=== PATIENT | male | born 1985 | race African-American/Black ===

== ENCOUNTER 2017-09-03 15:23 | Emergency (ER) | payer OTHER ==
--- NOTE | 2017-09-03 16:14 | ED ---
General Adult HPI - General Chief complaint: Chest Pain Stated complaint: High BP/Chest Pain Time Seen by Provider: 09/03/17 15:30 Source: patient, RN notes reviewed Mode of arrival: ambulatory Limitations: no limitations - History of Present Illness Initial comments: This a 32-year-old male presents emergency Department complaining of epigastric abdominal pain. Patient states he has been diagnosed with hypertension past was post get medications however does not take them. Patient went to a pharmacy and got a very high blood pressure so immediately came here after he had experienced about 10 seconds worth of epigastric abdominal pain. Patient became concerned because his pressure was high there however here it was completely normal. Patient denies any radiation of the pain. Patient denies shortness of breath difficulty breathing. Patient denies any diaphoresis. Patient denies any symptoms at this time. Patient denies any history of diabetes or high cholesterol. Patient denies any smoking history. Patient states family history is negative for heart disease. Patient states he's had these symptoms before and that she was in the epigastric region and occasionally feels a little radiation into his chest but it never lasts for more than 10 seconds. Patient states it does feel like a cramp. - Related Data Home Medications Medication Instructions Recorded Confirmed No Known Home Medications [No 09/03/17 09/03/17 Known Home Medications] Allergies Allergy/AdvReac Type Severity Reaction Status Date / Time No Known Allergies Allergy Verified 09/03/17 16:01 Review of Systems ROS Statement: Those systems with pertinent positive or pertinent negative responses have been documented in the HPI. ROS Other: All systems not noted in ROS Statement are negative. Past Medical History Past Medical History: No Reported History History of Any Multi-Drug Resistant Organisms: None Reported Past Surgical History: Orthopedic Surgery Past Psychological History: No Psychological Hx Reported Smoking Status: Never smoker Past Alcohol Use History: None Reported Past Drug Use History: None Reported General Exam - General Exam Comments Initial Comments: GENERAL: Patient is well-developed and well-nourished. Patient is nontoxic and well- hydrated and is in no acute distress. ENT: Neck is soft and supple. No significant lymphadenopathy is noted. Oropharynx is clear. Moist mucous membranes. Neck has full range of motion without eliciting any pain. There is no thyroid enlargement and no masses were felt. EYES: The sclera were anicteric and conjunctiva were pink and moist. Extraocular movements were intact and pupils were equal round and reactive to light. Eyelids were unremarkable. PULMONARY: Unlabored respirations. Good breath sounds bilaterally. No audible rales rhonchi or wheezing was noted. CARDIOVASCULAR: There is a regular rate and rhythm without any murmurs gallops or rubs. ABDOMEN: Soft and nontender with normal bowel sounds. No palpable organomegaly was noted. There is no palpable pulsatile mass. SKIN: Skin is clear with no lesions or rashes and otherwise unremarkable. NEUROLOGIC: Patient is alert and oriented x3. Cranial nerves II through XII are grossly intact. Motor and sensory are also intact. Normal speech, volume and content. Symmetrical smile. MUSCULOSKELETAL: Normal extremities with adequate strength and full range of motion. LYMPHATICS: No significant lymphadenopathy is noted PSYCHIATRIC: Normal psychiatric evaluation. Limitations: no limitations Course Vital Signs 09/03/17 09/03/17 15:33 17:10 Temperature 97.8 F Pulse Rate 83 84 Respiratory 18 16 Rate Blood Pressure 132/73 136/80 O2 Sat by Pulse 98 99 Oximetry Medical Decision Making - Medical Decision Making EKG shows normal sinus rhythm at 70 bpm IN interval is 152 QRS is 82 QT interval 376 QTC is 428. EKG shows some slight ST segment elevation especially in leads V1 and V2 and V3. I I had Dr. Duggan review this EKG and he was not concerned stated that he would not worry about this because it was in most of the leads. Chest x-ray shows no acute abnormalities. Patient remained chest pain free throughout the ED course. - Lab Data Result diagrams: 09/03/17 16:31 09/03/17 16:31 Lab Results 09/03/17 09/03/17 09/03/17 Range/Units 16:31 16:31 16:31 WBC 4.3 (3.8-10.6) k/uL RBC 5.02 (4.30-5.90) m/uL Hgb 14.9 (13.0-17.5) gm/dL Hct 44.3 (39.0-53.0) % MCV 88.3 (80.0-100.0) fL MCH 29.8 (25.0-35.0) pg MCHC 33.7 (31.0-37.0) g/dL RDW 12.2 (11.5-15.5) % Plt Count 283 (150-450) k/uL Neutrophils % 48 % Lymphocytes % 38 % Monocytes % 6 % Eosinophils % 7 % Basophils % 1 % Neutrophils # 2.1 (1.3-7.7) k/uL Lymphocytes # 1.6 (1.0-4.8) k/uL Monocytes # 0.3 (0-1.0) k/uL Eosinophils # 0.3 (0-0.7) k/uL Basophils # 0.0 (0-0.2) k/uL PT (9.0-12.0) sec INR (<1.2) APTT (22.0-30.0) sec Sodium 141 (137-145) mmol/L Potassium 4.2 (3.5-5.1) mmol/L Chloride 105 (98-107) mmol/L Carbon Dioxide 25 (22-30) mmol/L Anion Gap 11 mmol/L BUN 12 (9-20) mg/dL Creatinine 0.90 (0.66-1.25) mg/dL Est GFR (CKD-EPI)AfAm >90 (>60 ml/min/1.73 sqM) Est GFR (CKD-EPI)NonAf >90 (>60 ml/min/1.73 sqM) Glucose 99 (74-99) mg/dL Calcium 9.5 (8.4-10.2) mg/dL Magnesium 2.3 (1.6-2.3) mg/dL Total Bilirubin 0.6 (0.2-1.3) mg/dL AST 25 (17-59) U/L ALT 38 (21-72) U/L Alkaline Phosphatase 94 (38-126) U/L Total Creatine Kinase 444 H (55-170) U/L CK-MB (CK-2) 1.8 (0.0-2.4) ng/mL CK-MB (CK-2) Rel Index 0.4 Troponin I <0.012 (0.000-0.034) ng/mL Total Protein 7.3 (6.3-8.2) g/dL Albumin 4.3 (3.5-5.0) g/dL Amylase 68 (30-110) U/L Lipase 104 (23-300) U/L 09/03/17 Range/Units 16:31 WBC (3.8-10.6) k/uL RBC (4.30-5.90) m/uL Hgb (13.0-17.5) gm/dL Hct (39.0-53.0) % MCV (80.0-100.0) fL MCH (25.0-35.0) pg MCHC (31.0-37.0) g/dL RDW (11.5-15.5) % Plt Count (150-450) k/uL Neutrophils % % Lymphocytes % % Monocytes % % Eosinophils % % Basophils % % Neutrophils # (1.3-7.7) k/uL Lymphocytes # (1.0-4.8) k/uL Monocytes # (0-1.0) k/uL Eosinophils # (0-0.7) k/uL Basophils # (0-0.2) k/uL PT 10.6 (9.0-12.0) sec INR 1.1 (<1.2) APTT 26.3 (22.0-30.0) sec Sodium (137-145) mmol/L Potassium (3.5-5.1) mmol/L Chloride (98-107) mmol/L Carbon Dioxide (22-30) mmol/L Anion Gap mmol/L BUN (9-20) mg/dL Creatinine (0.66-1.25) mg/dL Est GFR (CKD-EPI)AfAm (>60 ml/min/1.73 sqM) Est GFR (CKD-EPI)NonAf (>60 ml/min/1.73 sqM) Glucose (74-99) mg/dL Calcium (8.4-10.2) mg/dL Magnesium (1.6-2.3) mg/dL Total Bilirubin (0.2-1.3) mg/dL AST (17-59) U/L ALT (21-72) U/L Alkaline Phosphatase (38-126) U/L Total Creatine Kinase (55-170) U/L CK-MB (CK-2) (0.0-2.4) ng/mL CK-MB (CK-2) Rel Index Troponin I (0.000-0.034) ng/mL Total Protein (6.3-8.2) g/dL Albumin (3.5-5.0) g/dL Amylase (30-110) U/L Lipase (23-300) U/L Disposition Clinical Impression: Atypical chest pain Disposition: HOME SELF-CARE Condition: Good Instructions: Chest Pain (ED) Referrals: Fabian Britton MD [Primary Care Provider] - 1-2 days Time of Disposition: 17:27
[2017-09-03 16:42] LABS: Basophils % (A) 1 %; Eosinophils # (A) 0.3 k/uL (0-0.7); Eosinophils % (A) 7 %; HCT 44.3 % (39.0-53.0); HGB 14.9 gm/dL (13.0-17.5); Lymphocytes # (A) 1.6 k/uL (1.0-4.8); Lymphocytes % (A) 38 %; MCH 29.8 pg (25.0-35.0); MCHC 33.7 g/dL (31.0-37.0); MCV 88.3 fL (80.0-100.0); Mean Platelet Volume 7.3; Monocytes # (A) 0.3 k/uL (0-1.0); Monocytes % (A) 6 %; Neutrophils # (A) 2.1 k/uL (1.3-7.7); Neutrophils % (A) 48 %; Platelet Count 283 k/uL (150-450); RBC 5.02 m/uL (4.30-5.90); RDW 12.2 % (11.5-15.5); WBC 4.3 k/uL (3.8-10.6)
--- NOTE | 2017-09-03 16:46 | XR ---
EXAMINATION TYPE: XR chest 2V DATE OF EXAM: 09/03/2017 COMPARISON: NONE HISTORY: Chest pain and hypertension TECHNIQUE: Frontal and lateral views of the chest are obtained. FINDINGS: There is no focal air space opacity, pleural effusion, or pneumothorax seen. Left basilar subsegmental atelectasis is noted. The cardiac silhouette size is within normal limits. The osseou s structures are intact. There is minimal left hemidiaphragm elevation. IMPRESSION: Left basilar subsegmental atelectasis with no other acute cardiopulmonary process.
[2017-09-03 16:52] LABS: ALT 38 U/L (21-72); AST 25 U/L (17-59); Albumin 4.3 g/dL (3.5-5.0); Alkaline Phosphatase 94 U/L (38-126); Amylase 68 U/L (30-110); Anion Gap 11 mmol/L; Blood Urea Nitrogen 12 mg/dL (9-20); Calcium 9.5 mg/dL (8.4-10.2); Carbon Dioxide 25 mmol/L (22-30); Chloride 105 mmol/L (98-107); Glucose 99 mg/dL (74-99); Lipase 104 U/L (23-300); Magnesium 2.3 mg/dL (1.6-2.3); Potassium 4.2 mmol/L (3.5-5.1); Sodium 141 mmol/L (137-145); Total Bilirubin 0.6 mg/dL (0.2-1.3); Total Protein 7.3 g/dL (6.3-8.2)
[2017-09-03 16:53] LABS: INR 1.1 (<1.2); Partial Thromboplastin Time 26.3 sec (22.0-30.0); Prothrombin Time 10.6 sec (9.0-12.0)
[2017-09-03 16:54] LABS: Creatine Kinase 444 U/L (55-170)
[2017-09-03 17:07] LABS: Creatine Kinase MB 1.8 ng/mL (0.0-2.4); Troponin I <0.012 ng/mL (0.000-0.034)
[2017-09-03 18:08] VITALS: BP 126/82; PULSE 80; RESP 18; TEMP 97.6
== END 2017-09-03 18:08 | disposition home or self-care (01) ==
LOC: EC 15:23
DX: R07.89 Other chest pain (principal); R10.13 Epigastric pain
CPT/HCPCS: 36415; 71046; 80053; 82150; 82550; 82553; 83690; 83735; 84484; 85025; 85610; 85730; 93005; 99285

== ENCOUNTER 2019-02-24 12:19 | Emergency (ER) | payer OTHER ==
[2019-02-24 12:25] VITALS: BP 151/103; PULSE 94; RESP 18; TEMP 98
[2019-02-24] MEDS ORDERED: predniSONE 50 MG TAB PO STA (12:41)
[2019-02-24] MEDS ORDERED: KETOROLAC 30 MG/ML 1 ML VIAL IM STA (12:41)
--- NOTE | 2019-02-24 13:03 | ED ---
General Adult HPI - General Chief complaint: Extremity Injury, Lower Stated complaint: L Arm&Leg Pain Time Seen by Provider: 02/24/19 12:28 Source: patient, RN notes reviewed Mode of arrival: ambulatory Limitations: no limitations - History of Present Illness Initial comments: 33-year-old male presents to the emergency department for chief of left leg p ain. Patient states that this has been ongoing for about 2 weeks. States that pain starts in the left side of his low back and radiates down his left leg to just above his knee. Patient states that sitting on this area makes the pain worse. Denies any injuries but does state this started after he was playing basketball. Denies any bladder or bowel changes. Denies any numbness or tingling in the saddle area. Denies any fevers or difficulty walking or weakness in the lower extremities. Denies any midline back pain. Patient has no other complaints at this time including shortness of breath, chest pain, abdominal pain, nausea or vomiting, headache, or visual changes. - Related Data Previous Rx's Medication Instructions Recorded predniSONE 50 mg PO DAILY #5 tablet 02/24/19 Allergies Allergy/AdvReac Type Severity Reaction Status Date / Time No Known Allergies Allergy Verified 09/03/17 16:01 Review of Systems ROS Statement: Those systems with pertinent positive or pertinent negative responses have been documented in the HPI. ROS Other: All systems not noted in ROS Statement are negative. Past Medical History Past Medical History: No Reported History History of Any Multi-Drug Resistant Organisms: None Reported Past Surgical History: Orthopedic Surgery Past Psychological History: No Psychological Hx Reported Smoking Status: Never smoker Past Alcohol Use History: None Reported Past Drug Use History: None Reported General Exam Limitations: no limitations General appearance: alert, in no apparent distress Head exam: Present: atraumatic, normocephalic, normal inspection Eye exam: Present: normal appearance, PERRL, EOMI. Absent: scleral icterus, conjunctival injection, periorbital swelling ENT exam: Present: normal exam, mucous membranes moist Neck exam: Present: normal inspection, full ROM. Absent: tenderness, meningismus, lymphadenopathy Respiratory exam: Present: normal lung sounds bilaterally. Absent: respiratory distress, wheezes, rales, rhonchi, stridor Cardiovascular Exam: Present: regular rate, normal rhythm, normal heart sounds. Absent: bradycardia, tachycardia, irregular rhythm Extremities exam: Present: other (Sensation intact in the left lower sternal knee. No edema or erythema. Patient has full range motion of the left hip and knee joints. DP pulses 2+, capillary refill less than 2 seconds. No tenderness of the calf or thigh. Patient does have tenderness in the sciatic notch. Positive straight leg raise test.) Back exam: Absent: CVA tenderness (R), CVA tenderness (L), paraspinal tenderness, vertebral tenderness Neurological exam: Present: alert Psychiatric exam: Present: normal affect, normal mood Course Vital Signs 02/24/19 12:23 Temperature 98.0 F Pulse Rate 94 Respiratory 18 Rate Blood Pressure 151/103 O2 Sat by Pulse 99 Oximetry Medical Decision Making - Medical Decision Making 33-year-old male presents to the emergency department for a chief complaint of left leg pain. States this has been ongoing for 2 weeks. States that it starts in his low back and radiates down the back of his left leg to just above his knee. States that sitting on this area makes it worse. Denies any injuries. No midline pain. On exam he does have sciatic notch tenderness and a positive straight leg raise. Neurovascular status intact in the left lower extremity. Sensation is intact in the left lower extremity and strength is 5 out of 5. Patient denies any red flag symptoms. Patient likely has sciatic nerve pain. Patient was given a shot of Toradol and this did improve his pain. he was educated on gentle stretching. He was given a prescription for steroids. He will follow up with primary care and orthopedics in one to 2 days. He'll return here if he has any worsening symptoms. Disposition Clinical Impression: Sciatic leg pain Disposition: HOME SELF-CARE Condition: Good Instructions (If sedation given, give patient instructions): Sciatica (ED), Lower Back Exercises (ED) Additional Instructions: Please take Motrin and Tylenol for pain. Take steroids starting tomorrow. Follow-up with orthopedics in one to 2 days. Return to the emergency department if you have any worsening symptoms. Prescriptions: predniSONE 50 mg PO DAILY #5 tablet Is patient prescribed a controlled substance at d/c from ED?: No Referrals: Fabian Britton MD [Primary Care Provider] - 1-2 days Porfirio Stevenson DO [Doctor of Osteopathic Medicine] - 1-2 days Time of Disposition: 13:38
== END 2019-02-24 13:44 | disposition home or self-care (01) ==
LOC: EC 12:19
DX: M54.42 Lumbago with sciatica, left side (principal); Z98.890 Other specified postprocedural states
CPT/HCPCS: 99283; 96372; J1885; J7512

== ENCOUNTER → 2019-05-28 | Outpatient (CLI) | payer OTHER ==
[2019-05-29 01:15] LABS: HIV 1 AB Non-Reactive (Non-Reactive); HIV 2 AB Non-Reactive (Non-Reactive); HIV AB P24 Non-Reactive (Non-Reactive); HIV P24 AG Non-Reactive (Non-Reactive)
[2019-05-29 02:06] LABS: Hepatitis A Antibody IgM Non-Reactive (Non-Reactive); Hepatitis B Core IgM Non-Reactive (Non-Reactive); Hepatitis B Surface Antigen Non-Reactive (Non-Reactive); Hepatitis C IgG Antibody Non-Reactive (Non-Reactive)
== END | disposition home or self-care (01) ==
LOC: LABMAIN 18:40
PROVIDERS: ATTEND Family Medicine
DX: Z11.3 Encounter for screening for infections with a predominantly sexual mode of transmission (principal); Z20.2 Contact with and (suspected) exposure to infections with a predominantly sexual mode of transmission; Z76.89 Persons encountering health services in other specified circumstances
CPT/HCPCS: 36415; 80074; 86694; 86695; 86696; 86780; 87390

== ENCOUNTER 2020-06-01 12:37 | Emergency (ER) | payer OTHER ==
[2020-06-01 12:49] VITALS: BP 136/86; PULSE 97; RESP 18; TEMP 99
--- NOTE | 2020-06-01 14:08 | ED ---
General Adult HPI - General Chief complaint: Nausea/Vomiting/Diarrhea Stated complaint: covid symptoms Time Seen by Provider: 06/01/20 13:26 Source: patient, RN notes reviewed, old records reviewed Mode of arrival: ambulatory Limitations: no limitations - History of Present Illness Initial comments: 35-year-old male patient to the ED for evaluation. Patient reports that he is coming to the hospital to get a Covid test. He reports that a couple days ago he had contact with a person who later tested Covid positive. He reports that he has had some minor myalgias and nausea. Denies any difficulty breathing or any fevers. Denies any other acute complaints. Systemic: Pt denies fatigue, fever/chills, rash. Pt denies weakness, night swe ats, weight loss. Neuro: Pt denies headache, visual disturbances, syncope or pre-syncope. HEENT: Pt denies ocular discharge or irritation, otalgia, rhinorrhea, pharyngitis or notable lymphadenopathy. Cardiopulmonary: Pt denies chest pain, SOB, heart palpitations, dyspnea on exertion. Abdominal/GI: Pt denies abdominal pain, v/d. : Pt denies dysuria, burning w/ urination, frequency/urgency. Denies new onset urinary or bowel incontinence. MSK: Pt denies loss of strength or function in extremities. Neuro: Pt denies new onset weakness, paresthesias. - Related Data Previous Rx's Medication Instructions Recorded predniSONE 50 mg PO DAILY #5 tablet 02/24/19 Allergies Allergy/AdvReac Type Severity Reaction Status Date / Time No Known Allergies Allergy Verified 06/01/20 12:49 Review of Systems ROS Statement: Those systems with pertinent positive or pertinent negative responses have been documented in the HPI. ROS Other: All systems not noted in ROS Statement are negative. Past Medical History Past Medical History: No Reported History History of Any Multi-Drug Resistant Organisms: None Reported Past Surgical History: Orthopedic Surgery Past Psychological History: No Psychological Hx Reported Smoking Status: Never smoker Past Alcohol Use History: Occasional Past Drug Use History: None Reported General Exam - General Exam Comments Initial Comments: Constitutional: NAD, AOX3, Pt has pleasant affect. HEENT: NC/AT, trachea midline, neck supple, no lymphadenopathy. External ears appear normal, without discharge. Mucous membranes moist. Eyes PERRLA, EOM intact. There is no scleral icterus. No pallor noted. Cardiopulmonary: RRR, no murmurs, rubs or gallops, no JVD noted. Lungs CTAB in anterior and posterior vidal. No peripheral edema. Abdominal exam: Abdomen soft and non-distended. Abdomen non-tender to palpation in all 4 quadrants. Bowel sounds active in LLQ. No hepatosplenomegaly. No ecchymosis Neuro: CN II-XII grossly intact. No nuchal rigidity. No raccon eyes, no santa sign, no hemotympanum. No cervical spinal tenderness. MSK: No posterior calf tenderness bilaterally, homans sign negative bilaterally. Posterior tibialis and radial pulse +2 bilaterally. Sensation intact in upper and lower extremities. Full active ROM in upper and lower extremities, 5/5 stregnth. Limitations: no limitations Course Vital Signs 06/01/20 12:47 Temperature 99.0 F Pulse Rate 97 Respiratory 18 Rate Blood Pressure 136/86 O2 Sat by Pulse 98 Oximetry Medical Decision Making - Medical Decision Making 35-year-old male patient to ED for Covid test. Patient also other stable, afebrile. Patient will be advised to self quarantined until results of tests. We'll try the any worsening symptoms. Case discussed with Dr. Raymond. Disposition Clinical Impression: Exposure to 2019 novel coronavirus Disposition: HOME SELF-CARE Condition: Stable Instructions (If sedation given, give patient instructions): Viral Syndrome (ED) Additional Instructions: Follow up with PCP tomorrow. Self quarentine until results from coronavirus test. Return to ED with any worsening symptoms. Is patient prescribed a controlled substance at d/c from ED?: No Referrals: Fabian Britton MD [Primary Care Provider] - 1-2 days
== END 2020-06-01 14:37 | disposition home or self-care (01) ==
LOC: EC 12:37
DX: U07.1 COVID-19 (principal)
CPT/HCPCS: 99284; U0003

== ENCOUNTER → 2020-06-16 | Outpatient (CLI) | payer OTHER | END | disposition home or self-care (01) | LOC: LABWHC1 14:25 | PROVIDERS: ATTEND Family Medicine | DX: Z20.828 Contact with and (suspected) exposure to other viral communicable diseases (principal) | CPT/HCPCS: U0003; C9803 ==

== ENCOUNTER 2024-05-03 18:14 | Emergency (ER) | payer OTHER ==
[2024-05-03 18:23] VITALS: RESP 18; TEMP 98.7
--- NOTE | 2024-05-03 18:40 | ED ---
Upper Extremity HPI - General Source: patient, RN notes reviewed Mode of arrival: ambulatory Limitations: no limitations <Stephany Panda - Last Filed: 05/03/24 18:40> - General Source: patient, RN notes reviewed Mode of arrival: ambulatory Limitations: no limitations - History of Present Illness MD Complaint: Injury to:: left, hand, finger -: hour(s) Other Extremity Injury: Fingers: Left, Hand: Left Handedness: right Place: school Severity scale (1-10): 10 Improves With: none Worsens With: none Context: direct blow Associated Symptoms: denies other symptoms <Anton Tesfaye - Last Filed: 05/04/24 17:20> - General Chief Complaint: Extremity Injury, Upper Stated Complaint: L Pinkie Injury Time Seen by Provider: 05/03/24 18:30 - History of Present Illness Initial Comments: Quick [id number] male presenting to the emerged part chief complaint of injury to the left fifth digit after playing basketball. (Stephany Panda) There is a 38-year-old female to the ER for evaluation of left fifth digit pain and deformity, patient took a basketball to the left hand and jammed his finger (Anton Tesfaye) - Related Data Previous Rx's Medication Instructions Recorded predniSONE 50 mg PO DAILY #5 tablet 02/24/19 Allergies Allergy/AdvReac Type Severity Reaction Status Date / Time No Known Allergies Allergy Verified 05/03/24 18:23 Review of Systems ROS Other: All systems not noted in ROS Statement are negative. <Stephany Panda - Last Filed: 05/03/24 18:40> ROS Other: All systems not noted in ROS Statement are negative. <Anton Tesfaye - Last Filed: 05/04/24 17:20> ROS Statement: Those systems with pertinent positive or pertinent negative responses have been documented in the HPI. Past Medical History Past Medical History: No Reported History History of Any Multi-Drug Resistant Organisms: None Reported Past Surgical History: Orthopedic Surgery Past Psychological History: No Psychological Hx Reported Smoking Status: Never smoker Past Alcohol Use History: Occasional Past Drug Use History: None Reported <Stephany Panda - Last Filed: 05/03/24 18:40> General Exam Limitations: no limitations <Stephany Panda - Last Filed: 05/03/24 18:40> General appearance: alert, in no apparent distress Head exam: Present: atraumatic, normocephalic, normal inspection Eye exam: Present: normal appearance, PERRL, EOMI. Absent: scleral icterus, conjunctival injection, periorbital swelling ENT exam: Present: normal exam, mucous membranes moist Neck exam: Present: normal inspection. Absent: tenderness, meningismus, lymphadenopathy Respiratory exam: Present: normal lung sounds bilaterally. Absent: respiratory distress, wheezes, rales, rhonchi, stridor Cardiovascular Exam: Present: regular rate, normal rhythm, normal heart sounds. Absent: systolic murmur, diastolic murmur, rubs, gallop, clicks GI/Abdominal exam: Present: soft, normal bowel sounds. Absent: distended, tenderness, guarding, rebound, rigid Extremities exam: Present: normal inspection, full ROM, normal capillary refill. Absent: tenderness, pedal edema, joint swelling, calf tenderness Back exam: Present: normal inspection Neurological exam: Present: alert, oriented X3, CN II-XII intact Psychiatric exam: Present: normal affect, normal mood Skin exam: Present: warm, dry, intact, normal color. Absent: rash <Anton Tesfaye - Last Filed: 05/04/24 17:20> - General Exam Comments Initial Comments: Visual Physical Exam Vital signs reviewed General: Well-appearing, nontoxic, no acute distress. Head: Normocephalic, atraumatic Eyes: PERRLA, EOMI ENT: Airway patent Chest: Nonlabored breathing Skin: No visual rash, normal skin tone Neuro: Alert and oriented 3 Musculoskeletal: No gross abnormalities (Stieler,Stephany) Course <Anton Tesfaye - Last Filed: 05/04/24 17:20> Vital Signs 05/03/24 05/03/24 18:19 19:57 Temperature 98.7 F Pulse Rate 107 H 88 Respiratory 18 18 Rate Blood Pressure 138/88 140/90 O2 Sat by Pulse 98 97 Oximetry - Reevaluation(s) Reevaluation #1: 05/03/24 19:31 Medical records reviewed (Anton Tesfaye) Reevaluation #2: 05/03/24 19:31 Patient symptoms unchanged (Anton Tesfaye) Reevaluation #3: 05/03/24 19:31 Patient informed of results and questions answered (Anton Tesfaye) Reevaluation #4: Was pt. sent in by a medical professional or institution ([facility] Canales, [employer], urgent care, hospital, or senior care...) When possible be specific @ -no Did you speak to anyone other than the patient for history (EMS, parent, family, police, friend...)? What history was obtained from this source @ -no Did you review nursing and triage notes (agree or disagree)? Why? @ -agree Are old charts reviewed (outside hosp., previous admission, EMS record, old EKG, old radiological studies, urgent care reports/EKG's, senior care records)? Report findings @ -yes Differential Diagnosis (chest pain, altered mental status, abdominal pain women, abdominal pain men, vaginal bleeding, weakness, fever, dyspnea, syncope, heada priyank, dizziness, GI bleed, back pain, seizure, CVA, palpatations, mental health, musculoskeletal)? @ -prior EKG interpreted by me (3pts min.). @ -yes X-rays interpreted by me (1pt min.). @ -yes left little finger dislocation CT interpreted by me (1pt min.). @ -no U/S interpreted by me (1pt. min.). @ -no What testing was considered but not performed or refused? (CT, X-rays, U/S, labs)? Why? @ -none What meds were considered but not given or refused? Why? @ -none Did you discuss the management of the patient with other professionals (professionals i.e. SHAWN Canales, [employer] OFF[employer]ER, lab, RT, psych nurse, nephrology social worker, auto fleet maintenance manager, teacher, complaint investigations officer, telephonic nurse case manager)? Give summary @ -no Was smoking cessation discussed for >3mins.? @ -no Was critical care preformed (if so, how long)? @ -no Were there social determinants of health that impacted care today? How? (Homelessness, low income, unemployed, alcoholism, drug addiction, transportation, low edu. Level, literacy, decrease access to med. care, senior care, rehab)? @ -none Was there de-escalation of care discussed even if they declined (Discuss DNR or withdrawal of care, Hospice)? DNR status @ -no What co-morbidities impacted this encounter? (DM, HTN, Smoking, COPD, CAD, Cancer, CVA, ARF, Chemo, Hep., AIDS, mental health diagnosis, sleep apnea, morbid obesity)? @ -none Was patient admitted / discharged? Hospital course, mention meds given and route, prescriptions, significant lab abnormalities, going to OR and other pertinent info. @ - 38 male to the ER for evaluation, patient presents today for evaluation of finger dislocation reduced here in the ER patient can be discharged home Discharged Undiagnosed new problem with uncertain prognosis? @ -no Drug Therapy requiring intensive monitoring for toxicity (Heparin, Nitro, Insulin, Cardizem)? @ -no Were any procedures done? @ -Yes reduction of finger dislocation Diagnosis/symptom? @ -Finger dislocation reduced here in the ER Acute, or Chronic, or Acute on Chronic? @ -Acute Uncomplicated (without systemic symptoms) or Complicated (systemic symptoms)? @ -Complicated Side effects of treatment? @ -no Exacerbation, Progression, or Severe Exacerbation? @ -exacerbation Poses a threat to life or bodily function? How? (Chest pain, [place], CA, pneumonia, PE, COPD, DKA, ARF, appy, cholecystitis, CVA, Diverticulitis, Homicidal, Suicidal, threat to staff... and all critical care pts) @ -yes (Anton Tesfaye) Procedures - Orthopedic Joint Reduction Joint #1 Consent Obtained: verbal consent Side: left Joint Reduction Location: finger Technique Used: traction/counter-traction Post-Reduction Neuro Exam: intact Post-Reduction Vascular Exam: intact Post Reduction X-Ray Obtained: Yes Post Reduction X-Ray Results: reduced Splint Applied: Yes Patient Tolerated Procedure: well <Anton Tesfaye - Last Filed: 05/04/24 17:20> Medical Decision Making <Stephany Panda - Last Filed: 05/03/24 18:40> - Radiology Data Radiology results: report reviewed (X-ray showing left index finger dislocation), image reviewed <Anton Tesfaye - Last Filed: 05/04/24 17:20> - Medical Decision Making I completed the quick note portion of this chart signed Stephany Panda PA-C (Stephany Panda) 38 male to the ER for evaluation, patient presents today for evaluation of finger dislocation reduced here in the ER patient can be discharged home (Anton Tesfaye) Disposition <Stephany Panda - Last Filed: 05/03/24 18:40> Is patient prescribed a controlled substance at d/c from ED?: No Time of Disposition: 19:30 <Anton Tesfaye - Last Filed: 05/04/24 17:20> Clinical Impression: Dislocation of left little finger Disposition: HOME SELF-CARE Condition: Good Instructions (If sedation given, give patient instructions): Finger Dislocation (ED) Referrals: Fabian Britton MD [Primary Care Provider] - 1-2 days Arun Gauthier MD [STAFF PHYSICIAN] - 1-2 days
--- NOTE | 2024-05-03 19:14 | XR ---
EXAMINATION TYPE: XR hand complete LT DATE OF EXAM: 05/03/2024 6:33 PM COMPARISON: None CLINICAL INDICATION: Male, 38 years old with history of deformity; TECHNIQUE: XR hand complete LT Frontal, lateral and oblique views were obtained. FINDINGS/IMPRESSION: Acute posterior dislocation of the fifth digit proximal phalanx. No evidence of fracture. [facility], , 05/03/2024 7:12 PM
--- NOTE | 2024-05-03 19:59 | XR ---
EXAMINATION TYPE: XR hand limited LT DATE OF EXAM: 05/03/2024 7:41 PM COMPARISON: None CLINICAL INDICATION: Male, 38 years old with history of reduction; pain TECHNIQUE: XR hand limited LT Frontal, lateral and oblique views were obtained. FINDINGS/IMPRESSION: Interval reduction of fifth digit proximal interphalangeal joint dislocation. No evidence of fracture . Accessory ossicle anterior to the joint space noted. [facility], , 05/03/2024 7:56 PM
[2024-05-03 20:04] VITALS: BP 140/90; PULSE 88
== END 2024-05-03 19:57 | disposition home or self-care (01) ==
LOC: EC 18:14
DX: S63.257A Unspecified dislocation of left little finger, initial encounter (principal); W23.0XXA Caught, crushed, jammed, or pinched between moving objects, initial encounter; Y93.67 Activity, basketball
CPT/HCPCS: 26770; 99283